=== PATIENT | male | born 1955 | race African-American/Black ===

== ENCOUNTER 2017-04-24 05:34 | Emergency (ER) | payer MEDICAID | END 2017-04-24 06:40 | disposition home or self-care (01) | LOC: D.ER 05:34 | DX: M25.562 Pain in left knee (principal); F17.200 Nicotine dependence, unspecified, uncomplicated ==

== ENCOUNTER → 2017-05-03 13:06 | Outpatient (CLI) | payer MEDICAID | END | disposition home or self-care (01) | LOC: D.MRI 04-27 10:30 | DX: M25.562 Pain in left knee (principal) ==

== ENCOUNTER 2017-06-02 06:45 | Day surgery (SDC) | payer MEDICAID ==
[2017-05-31 10:41] LABS: HEMATOCRIT 49.8 % (42.0-54.0); HEMOGLOBIN 16.9 g/dL (13.5-17.5); MCH 35.5 pg (26.0-34.0); MCHC 33.9 g/dL (31.0-37.0); MCV 104.6 fL (80.0-100.0); RBC 4.76 10x6/uL (4.20-6.10); RDW 12.6 % (11.5-14.5); WBC 5.2 10x3/uL (4.8-10.8)
[~2017-06-02] VITALS: Ht 190.5 cm; Wt 93.0 kg
--- NOTE | ~2017-06-02 | OP ---
PATIENT NAME: PILY NICOLE MEDICAL RECORD: [id number] :51 LOCATION:D.OPS ADMISSION DATE: SURGEON: CHINA PETERSON MD DATE OF OPERATION: 06/02/2017 PREOPERATIVE DIAGNOSIS: Medial meniscus tear of the left knee. POSTOPERATIVE DIAGNOSIS: Medial meniscus tear of the left knee. PROCEDURE: Arthroscopic partial medial meniscectomy. SURGEON: China Peterson MD ANESTHESIA: General. INTRAOPERATIVE COMPLICATIONS: None. SUMMARY OF PATHOLOGIC FINDINGS: The patient had a very complex posterior horn of the medial meniscus from the meniscal root over to just in front of the popliteal hiatus. This required debridement; however, the attachment in front of the popliteal hiatus I thought was stable and did not require further subtotal meniscectomy. OPERATIVE SUMMARY IN DETAIL: After obtaining the appropriate preoperative orthopedic surgery consent as well as anesthetic consultation, evaluation and clearance, the patient was brought to the operating room and placed on operating table in supine position. After general laryngeal mask airway was administered, tourniquet was placed about the proximal aspect of the left lower extremity. Left lower extremity was prepped and draped in routine sterile fashion. The leg was elevated and exsanguinated, tourniquet inflated to 350 mmHg. Routine inferolateral portal was established followed by superomedial portal and inferomedial portal. Diagnostic arthroscopy did reveal the above findings. A combination of arthroscopic meniscotomes as well as a full radius resector was utilized to debride this meniscus. Having completed this, arthroscopy portals were closed in routine interrupted fashion using 4-0 Prolene. The knee was insufflated with 30 cc of 0.25% Marcaine with epinephrine. Sterile dressings were applied. Tourniquet was deflated. The patient was awakened, taken to recovery room in stable condition. All final needle and sponge counts were correct. TRANSINT:[id number] Voice Confirmation ID: [id number] DOCUMENT ID: [id number] CHINA PETERSON MD at 1601 CC: [id number] DICTATION DATE: 06/02/17 1117 PRODUCT SUPPORT ANALYST: 06/02/17 1136 [facility] 06/02/17 [place] [address]
[~2017-06-02 06:45] MED LIST: NORCO 7.5/325 T1 TA1 PO
[2017-06-02 07:44] VITALS: BP 130/83; Ht 190.5 cm; Wt 93.0 kg
[2017-06-02] MEDS ORDERED: HYDROCODONE-APA1 TAB PO (11:22)
== END 2017-06-02 14:35 | disposition home or self-care (01) ==
LOC: D.OPS 06:45 → D.PAN 09:15 → D.OPS 09:15
PROVIDERS: Anesthesiology
DX: S83.232A Complex tear of medial meniscus, current injury, left knee, initial encounter (principal); Z01.812 Encounter for preprocedural laboratory examination; X58.XXXA Exposure to other specified factors, initial encounter

== ENCOUNTER → 2017-07-20 14:04 | Outpatient (CLI) | payer MEDICAID ==
[2017-06-02 07:44] VITALS: BMI 25.6
[~2017-07-20 14:04] MED LIST changes: +ELIQUIS2.5 MG PO; +HYDROCODONE-APA1 TAB PO; +PERCOCET 10/3251 TA1 PO
== END | disposition home or self-care (01) ==
LOC: D.LABREF 14:04
DX: M17.12 Unilateral primary osteoarthritis, left knee (principal); Z11.8 Encounter for screening for other infectious and parasitic diseases

== ENCOUNTER 2017-08-17 10:00 | Inpatient (IN) | payer MEDICAID ==
[~2017-08-17] VITALS: Ht 190.5 cm; Wt 95.5 kg
--- NOTE | ~2017-08-17 | OP ---
PATIENT NAME: PILY NICOLE MEDICAL RECORD: [id number] :51 LOCATION:D.[id number] ADMISSION DATE:08/22/17 SURGEON: CHINA PETERSON MD DATE OF OPERATION: 08/22/2017 PREOPERATIVE DIAGNOSIS: Degenerative arthritis of the left knee. POSTOPERATIVE DIAGNOSIS: Degenerative arthritis of the left knee. PROCEDURE: Left total knee arthroplasty. SURGEON: China Peterson MD PCB DESIGNER: NINA Garcia ANESTHESIA: General. INTRAOPERATIVE COMPLICATIONS: None. SUMMARY OF PATHOLOGIC FINDINGS: He had extensive osteoarthritis of medial femoral compartment. Patellofemoral compartment and lateral compartment were relatively arthritis free. IMPLANTS USED: [employer] triathlon total knee arthroplasty, press fit; size 7 distal femoral component; size 11 polyethylene insert; size 7 tibial baseplate. Again, all press fit. This is a CR knee. OPERATIVE SUMMARY IN DETAIL: After obtaining the appropriate preoperative orthopedic surgery consent as well as anesthetic consultation, evaluation and clearance, the patient was brought to the operating room and placed on the operating table in supine position. After general laryngeal mask airway was administered, tourniquet was placed in the proximal aspect of left lower extremity. Left lower extremity was then prepped and draped in routine sterile fashion. The leg was elevated and tourniquet was inflated to 350 mmHg. Routine midline incision was taken down for a paramedian arthrotomy. Paramedian arthrotomy was performed. Patella was everted, distal femur was exposed. Soft tissue excision was done in the usual fashion. Having completed this, intramedullary guide hole was created for intramedullary guided distal femoral cuts. Following this, the proximal tibia was completely exposed. Again, intramedullary guided hole was created for intramedullary guided proximal tibial cut. Proximal tibia was cut. The all-in-1 cutting guide was then used for the chamfer cutting guides on the distal femur. Having completed this, trials were put in corresponding to the above-mentioned final implants, taken through range of motion and found to be stable in all planes. Trial components were taken out. Final distal femoral and proximal tibial preparations were made. This was followed by copious irrigation of the entire knee joint cavity. Tibial baseplate was then put in a press fit fashion along with the polyethylene. The distal femur was also put in a press fit fashion. The knee was then taken down, taken through a range of motion and found to be stable in all planes. Having completed this, wound was again copiously irrigated. It was then filled with Vitagel from [employer]. A #2 Ethibond was then used for capsule closure. This was then followed by #1 Vicryl, 2-0 Vicryl and skin ryder for final skin closure. Sterile dressings were applied. Tourniquet was deflated. The patient was awakened and taken to recovery room in stable condition. All final needle and sponge counts were correct. OPERATIVE REPORT [id number] PILY NICOLE TRANSNOLVIA:[id number] Voice Confirmation ID: [id number] DOCUMENT ID: [id number] KRISTEN BAUMAN, CHINA MIKE at 1332 CC: [id number] DICTATION DATE: 08/22/17 1026 SCHOOL VOCATIONAL EDUCATOR: 08/22/17 1217 ADM IN [facility] [address] [place] [address]
--- NOTE | ~2017-08-17 | HP ---
PATIENT: PILY CASTILLO MEDICAL RECORD: [id number] ACCOUNT: [id number] LOCATION:D.[id number] : 51 ADMISSION DATE: 08/22/17 HISTORY AND PHYSICAL EXAMINATION CHIEF COMPLAINT: Severe pain in the left knee. HISTORY OF PRESENT ILLNESS: Mr. Castillo presents with long-term painful left knee. He has tried multiple conservative measures including but not limited to cortisone injections, viscous supplementation as well as physical therapy. They all worked temporarily now, then failed to give him any relief. He has asked if total knee arthroplasty would be as option. After discussing the risks, hazards benefits about total knee arthroplasty in his relatively young age, he wishes to proceed. PAST MEDICAL HISTORY: Tobacco abuse -- smoker, COPD. Cardiovascular history is negative along with his other history. MEDICATIONS: Listed on the patient's intake questionnaire. These were reviewed with the patient. REVIEW OF SYSTEMS: No current nausea, vomiting, fever, chills, or sweats. No chest pain, shortness of breath. No recent mental status or mood changes. No or GI complaints. No weight loss or weight gain. PHYSICAL EXAMINATION: GENERAL: The patient is awake, alert, and oriented times 3. He is 6 feet 3 inches, weighs 210 pounds. HEENT: Pupils equal, round, reactive to light and accommodation. NECK: Supple. LUNGS: Clear to auscultation bilaterally. HEART: Regular rate and rhythm without murmurs, rubs or gallops. ABDOMEN: Soft, benign and normal bowel sounds. MUSCULOSKELETAL: The patient has a varus deformity of the left knee with medial joint line pseudolaxity, pain and tenderness along the medial joint line along with crepitus. He has pain with initiation of bending, has pain with prolonged standing according to him. Radiographs taken include AP and lateral weightbearing views of the left knee show end-stage arthritis of the left knee consistent with the patient's pain. ASSESSMENT: Degenerative arthritis of the left knee, severe. PLAN: Proceed with total knee arthroplasty after understanding the risks/benefits associated with this. TRANSINT:[id number] Voice Confirmation ID: [id number] DOCUMENT ID: [id number] HISTORY AND PHYSICAL [id number] BONNIEPILY PETERSON MD, CHINA MIKE at 1150 CC: [id number] DICTATION DATE: 09/29/17 1601 GEAR REPAIR SUPERVISOR: 09/29/17 1611 [facility] IN 08/25/17 [place] [id number] [facility], [facility]901
[~2017-08-17 10:00] MED LIST changes: -ELIQUIS2.5 MG PO; -PERCOCET 10/3251 TA1 PO
[2017-08-17 11:04] LABS: BASOPHILS 0 % (0-2); EOSINOPHILS 0.7 % (0-7); HEMATOCRIT 45.7 % (42.0-54.0); HEMOGLOBIN 15.8 g/dL (13.5-17.5); IMMATURE GRANULOCYTES 0.2 % (0-5); LYMPHOCYTES 23.8 % (15-50); MCH 36.2 pg (26.0-34.0); MCHC 34.6 g/dL (31.0-37.0); MCV 104.6 fL (80.0-100.0); MEAN PLATELET VOLUME 11.1 fL (7.4-10.4); NEUTROPHILS 70.3 % (40-80); PLATELET COUNT 237 10x3/uL (130-400); RBC 4.37 10x6/uL (4.20-6.10); RDW 12.9 % (11.5-14.5); WBC 6.1 10x3/uL (4.8-10.8)
[2017-08-17 11:12] LABS: ANION GAP 11.7 mmol/L (8-16); CALCIUM 9.3 mg/dL (8.5-10.1); CARBON DIOXIDE 27.6 mmol/L (21.0-32.0); CREATININE - SERUM 1.1 mg/dL (0.6-1.3); POTASSIUM - SERUM 4.3 mmol/L (3.5-5.1)
[2017-08-17 11:20] LABS: APTT 27.7 SECONDS (22.8-39.4); INR 0.92 (0.85-1.17)
[2017-08-17 11:55] LABS: APPEARANCE CLEAR (CLEAR); BACTERIA FEW /hpf (NONE SEEN); BILIRUBIN NEGATIVE (NEGATIVE); COLOR YELLOW (YELLOW); EPITHELIAL CELLS OCC /hpf (0-5); GLUCOSE NEGATIVE (NEGATIVE); KETONE NEGATIVE (NEGATIVE); NITRITE NEGATIVE (NEGATIVE); PROTEIN NEGATIVE (NEGATIVE); RED CELLS - URINE 0-5 /hpf (0-5); UROBILINOGEN NORMAL (NORMAL); WHITE CELLS - URINE RARE /hpf (0-5)
[2017-08-22] MEDS ORDERED: NORCO 7.5/325 T1 TA1 PO (06:16)
[2017-08-22 06:21] VITALS: BP 120/86; BMI 26.3
[2017-08-22 11:49] VITALS: BP 126/83
[2017-08-22 12:13] VITALS: BP 128/83; Ht 190.5 cm; Wt 95.5 kg
[2017-08-22 16:13] VITALS: BP 95/67
[2017-08-22 20:00] VITALS: BP 107/65
[2017-08-23 00:33] VITALS: BP 94/49
[2017-08-23 04:00] VITALS: BP 105/61
[2017-08-23 05:02] LABS: HEMATOCRIT 38.1 % (42.0-54.0); MCH 35.6 pg (26.0-34.0); MCHC 34.1 g/dL (31.0-37.0); MCV 104.4 fL (80.0-100.0); MEAN PLATELET VOLUME 11.7 fL (7.4-10.4); RBC 3.65 10x6/uL (4.20-6.10); WBC 11.5 10x3/uL (4.8-10.8)
[2017-08-23 08:42] VITALS: BP 95/56
[2017-08-23 13:04] VITALS: BP 110/69
[2017-08-23 16:47] VITALS: BP 106/65
[2017-08-23 20:00] VITALS: BP 119/81
[2017-08-24 04:00] VITALS: BP 108/66
[2017-08-24 05:11] LABS: HEMATOCRIT 38.4 % (42.0-54.0); HEMOGLOBIN 12.9 g/dL (13.5-17.5); MCHC 33.6 g/dL (31.0-37.0); MCV 104.1 fL (80.0-100.0); MEAN PLATELET VOLUME 11.5 fL (7.4-10.4); RBC 3.69 10x6/uL (4.20-6.10); RDW 13.1 % (11.5-14.5)
[2017-08-24 05:12] LABS: WBC 8.4 10x3/uL (4.8-10.8)
[2017-08-24 08:49] VITALS: BP 121/75
[2017-08-24 12:50] VITALS: BP 138/87
[2017-08-24 16:47] VITALS: BP 135/87
[2017-08-24 20:00] VITALS: BP 143/77
[2017-08-24 23:43] VITALS: BP 125/83
[2017-08-25 03:58] VITALS: BP 122/76
[2017-08-25] MEDS ORDERED: ELIQUIS2.5 MG PO (07:44)
[2017-08-25] MEDS ORDERED: PERCOCET 10/3251 TA1 PO (07:44)
[2017-08-25 09:07] VITALS: BP 125/74
== END 2017-08-25 10:27 | disposition home health service (06) | DRG 470 ==
LOC: D.MS 08-22 05:50 → D.SDCHOLD 08-22 05:50 → D.MS 08-22 11:15
PROVIDERS: Orthopaedic Surgery
PROC: 0SRD0JA Replacement of Left Knee Joint with Synthetic Substitute, Uncemented, Open Approach (ICD-10-PCS; principal; 2017-08-22 08:20)
DX: M17.12 Unilateral primary osteoarthritis, left knee (principal); F17.200 Nicotine dependence, unspecified, uncomplicated

== ENCOUNTER 2017-11-28 09:29 | Day surgery (SDC) | payer MEDICAID ==
[~2017-11-28] VITALS: Ht 190.5 cm; Wt 95.3 kg
--- NOTE | ~2017-11-28 | OP ---
PATIENT NAME: PILY NICOLE MEDICAL RECORD: [id number] :51 LOCATION:[facility] ADMISSION DATE: SURGEON: CHINA PETERSON MD DATE OF OPERATION: 11/28/2017 PREOPERATIVE DIAGNOSIS: Arthrofibrosis of the left knee. POSTOPERATIVE DIAGNOSIS: Arthrofibrosis of the left knee. PROCEDURE: Manipulation of the left knee under anesthesia. SURGEON: China Peterson MD ANESTHESIA: General. INTRAOPERATIVE COMPLICATIONS: None. SUMMARY OF PATHOLOGIC FINDINGS: The patient had good flexion to approximately 90 degrees; however, beyond 90 degrees, adhesions were encountered and manipulation made it able to get him to approximately 145. OPERATIVE SUMMARY IN DETAIL: After obtaining the appropriate preoperative orthopedic surgery consent as well as anesthetic consultation, evaluation and clearance, the patient was brought to the operating room and placed on the operating table in supine position. After adequate TIVA anesthesia was administered and a preoperative lower extremity regional block had been done, the patient's knee was stabilized and manipulated in full extension that is approximately -[address] to approximately 145 degrees with good release of adhesions. Having completed this, the patient was awakened and taken back to outpatient in stable condition. All final needle and sponge counts were correct. TRANSINT:[id number] Voice Confirmation ID: [id number] DOCUMENT ID: [id number] CHINA PETERSON MD at 1023 CC: [id number] DICTATION DATE: 12/01/17808 C2 TACTICAL ANALYSIS TECHNICIAN: 12/01/17910 [facility] 11/28/17 [place] [id number] [place] [address]
[~2017-11-28 09:29] MED LIST changes: +ELIQUIS2.5 MG PO; +PERCOCET 10/3251 TA1 PO
[2017-11-28 10:25] VITALS: BP 107/71; Ht 190.5 cm; Wt 95.3 kg
== END 2017-11-28 13:25 | disposition home or self-care (01) ==
LOC: D.OPS 09:29 → D.PAN 12:45 → D.OPS 13:25 → D.PAN 14:50 → D.OPS 14:50 → D.PAN 15:15
DX: M24.662 Ankylosis, left knee (principal); Z01.812 Encounter for preprocedural laboratory examination

== ENCOUNTER 2018-08-14 09:36 | Emergency (ER) | payer MEDICAID ==
[~2018-08-14] VITALS: Ht 190.5 cm; Wt 95.5 kg
[2018-08-14 09:38] VITALS: Ht 190.5 cm; Wt 95.5 kg
[2018-08-14] MEDS ORDERED: TORADOL10 MG PO (11:10)
[2018-08-14 11:33] VITALS: BP 130/64
== END 2018-08-14 11:35 | disposition home or self-care (01) ==
LOC: D.ER 09:36
DX: M25.562 Pain in left knee (principal); Z96.652 Presence of left artificial knee joint

== ENCOUNTER 2019-03-16 09:09 | Emergency (ER) | payer MEDICARE, MEDICAID ==
[~2019-03-16] VITALS: Ht 190.5 cm; Wt 95.5 kg
[~2019-03-16 09:09] MED LIST changes: +TORADOL10 MG PO
[2019-03-16 09:18] VITALS: Ht 190.5 cm; Wt 95.5 kg
[2019-03-16] MEDS ORDERED: TYLENOL #4 W/CO1 TAB PO (11:40)
[2019-03-16] MEDS ORDERED: NAPROSYN500 MG PO (11:40)
[2019-03-16] MEDS ORDERED: PREDNISONE20 MG PO (11:40)
[2019-03-16 12:00] VITALS: BP 156/99
== END 2019-03-16 12:01 | disposition home or self-care (01) ==
LOC: D.ER 09:09
DX: M54.5 Low back pain (principal)